=== PATIENT | female | born 1960 | race Caucasian/White ===

== ENCOUNTER 2019-03-08 11:18 | Day surgery (SDC) | payer OTHER ==
[2019-03-07 17:07] VITALS: BMI 21.9
[2019-03-08] MEDS ORDERED: MIDAZOLAM HCL 2 MG/2 ML SINGLE DOSE VIAL ONE (12:35)
[2019-03-08] MEDS ORDERED: PROPOFOL 20 ML ONE (12:35)
[2019-03-08] MEDS ORDERED: DEXAMETHASONE SOD PHOSPHATE 4 MG/1 ML VIAL ONE (12:35)
[2019-03-08] MEDS ORDERED: ACETAMINOPHEN 1000 MG/100 ML VIAL (NON FORMULARY) IVPB ONE ×2 (12:38→15:30)
--- NOTE | 2019-03-08 12:39 | HP ---
History & Physical Update - History History: No Change - Physical Physical: No Change - Assessment Assessment: No Change - Plan Plan: No Change
[2019-03-08] MEDS ORDERED: IBUPROFEN 800 MG/8 ML IJ IVPB SCH (12:45)
[2019-03-08] MEDS ORDERED: DEXTROSE 5%-0.45% SALINE 1,000 ML IV SCH (12:45)
[2019-03-08] MEDS ORDERED: ceFAZolin SODIUM 1 GM VIAL ONE (12:53)
[2019-03-08] MEDS ORDERED: ceFAZolin SODIUM 1 GM VIAL IVPB ONE (12:55)
[2019-03-08] MEDS ORDERED: IOHEXOL 300 MG/ML INFUS..BTL IJ ONE (13:03)
[2019-03-08] MEDS ORDERED: ACETAMINOPHEN INJECTION 100 ML IVPB ONE (13:28)
[2019-03-08] MEDS ORDERED: IBUPROFEN 800 MG/8 ML IJ IVPB ONE (13:35)
[2019-03-08 15:27] VITALS: TEMP 97.8
[2019-03-08] MEDS ORDERED: ONDANSETRON 4 MG/2 ML VIAL IVPUSH PRN (15:29)
[2019-03-08] MEDS ORDERED: oxyCODONE HCL 5 MG TABLET PO PRN (15:29)
[2019-03-08] MEDS ORDERED: LACTATED RINGERS SOLUTION 1,000 ML IV SCH (15:30)
[2019-03-08 17:55] VITALS: BP 119/72; PULSE 67
--- NOTE | 2019-03-14 09:57 | OP ---
DATE OF OPERATION: 03/08/2019 PREOPERATIVE DIAGNOSIS: Left-sided back pain, renal colic. Left ureteropelvic junction obstruction. POSTOPERATIVE DIAGNOSIS: Left-sided back pain, renal colic. Left ureteropelvic junction obstruction. PROCEDURE: Cystoscopy, retrograde pyelogram, and left ureteral stent placement. SURGEON: Mingo Kirby MD ANESTHESIA: General. DRAINS: A 6 x 24 double-J ureteral stent on the left. PREOPERATIVE INDICATIONS: The patient is a 58-year-old female with a history of kidney stones in the past. She comes in with severe left-sided renal colic and CT scan showing what appears to be a left UPJ obstruction with hydronephrosis of the kidney. However, no stones were seen in the ureter, and the ureter itself is collapsed. She comes to the OR today for stent placement. DESCRIPTION OF PROCEDURE: The patient was brought to the OR, placed on the table in the supine position, given general anesthesia and IV antibiotics and placed in the modified lithotomy position. The groin was prepped and draped sterilely. Timeout was performed. Cystoscopy was performed. The bladder itself was unremarkable. The left UO was visualized, and a wire was passed up into the left kidney. Retrograde pyelogram was performed which revealed normal course of the ureter with no stones. There appeared to be a tightness at the UPJ consistent with UPJ obstruction. Over the wire a 6 x 24 double-J ureteral stent was placed with 1 loop in the kidney and 1 loop in the bladder. Contrast appeared to drain from the kidney after the stent was placed. The bladder was emptied. The patient was woken up. Joe [id number]
== END 2019-03-08 17:30 | disposition home or self-care (01) ==
LOC: JASU-SURG 11:18
PROVIDERS: ATTEND Urology
PROC: 0T778DZ Dilation of Left Ureter with Intraluminal Device, Via Natural or Artificial Opening Endoscopic (ICD-10-PCS; principal; 2019-03-08 12:30)
PROC: 0T778DZ Dilation of Left Ureter with Intraluminal Device, Via Natural or Artificial Opening Endoscopic (ICD-10-PCS; 2019-03-08 12:30)
DX: N13.5 Crossing vessel and stricture of ureter without hydronephrosis (principal); N23 Unspecified renal colic
CPT/HCPCS: 94760; J0131